=== PATIENT | female | born 1970 | race Caucasian/White ===

== ENCOUNTER 2019-08-23 19:00 | Emergency (ER) | payer OTHER ==
[~2019-08-23] VITALS: Ht 170.2 cm; Wt 88.9 kg
--- NOTE | 2019-08-23 19:00 | NUR ---
PT BIBA BLS. TAKEN TO BED 9
[2019-08-23 19:01] VITALS: BP 168/92
--- NOTE | 2019-08-23 19:30 | NUR ---
Dr. Sterling examining patient.
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
[2019-08-23] MEDS ORDERED: KETOROLAC 30 MG/ML VIAL IM ONE (19:35)
[2019-08-23] MEDS ORDERED: FLUORESCEIN OPTH STRIP 1 MG OP ONE (19:35)
[2019-08-23] MEDS ORDERED: DIAZEPAM 5 MG TAB PO ONE (19:35)
[2019-08-23] MEDS ORDERED: TETRACAINE HCL/PF 0.5% OPTH 4 ML BTL OP ONE (19:35)
--- NOTE | 2019-08-23 20:22 | NUR ---
PT RETURN FROM RADIOLOGY
--- NOTE | 2019-08-23 20:30 | NUR ---
PATIENT IS ALERT AND ORIENTED, IS AWARE TO REPORT ANY FEELING OF NUMBNESS. DAUGHTER IS AT BEDSIDE AND AWARE NOT TO MOVE PATIENT
--- NOTE | 2019-08-23 20:49 | NUR ---
PT ASSISTED ON BEDPAN.
[2019-08-23] MEDS ORDERED: TETRACAINE HCL/PF 0.5% OPTH 4 ML BTL ONE (21:38)
--- NOTE | 2019-08-23 21:39 | NUR ---
DR NORTON AT BEDSIDE EXAMINING PATIENT EYE
[2019-08-23 22:05] VITALS: BP 130/92
--- NOTE | 2019-08-23 22:05 | NUR ---
Patient discharged with v/s stable. Written and verbal after care instructions given and explained. Patient alert, oriented and verbalized understanding of instructions. Ambulatory with steady gait. All questions addressed prior to discharge. ID band removed. Patient advised to follow up with PMD. Rx of NAPROSYN, TOBRAMYCIN, VALIUM WAS given. Patient educated on indication of medication including possible reaction and side effects. Opportunity to ask questions provided and answered. PT STATED SHE HAD SOME PAIN 5/10 AND WAS REQUESTING MORE PAIN MEDICATION PRIOR TO D/C. ERMD MADE AWARE.
[2019-08-23] MEDS ORDERED: HYDROcodone/APAP 5/325 MG 1 TAB TAB PO ONE (22:10)
--- NOTE | 2019-08-23 22:20 | NUR ---
PATIENT LEFT BEFORE ADMINISTRATION OF HYDROCODONE PRESCRIBED.
== END 2019-08-23 22:05 | disposition home or self-care (01) ==
LOC: MED 19:00
DX: S16.1XXA Strain of muscle, fascia and tendon at neck level, initial encounter (principal); S39.012A Strain of muscle, fascia and tendon of lower back, initial encounter; S00.212A Abrasion of left eyelid and periocular area, initial encounter; V49.60XA Unspecified car occupant injured in collision with unspecified motor vehicles in traffic accident, initial encounter; Y93.89 Activity, other specified; Y92.89 Other specified places as the place of occurrence of the external cause; Y99.8 Other external cause status
CPT/HCPCS: 72040; 72110; 96372; 99284; J1885

== ENCOUNTER 2019-08-25 17:12 | Emergency (ER) | payer OTHER ==
[~2019-08-25] VITALS: Ht 170.2 cm; Wt 88.0 kg
--- NOTE | 2019-08-25 17:22 | NUR ---
PATIENT AMBUALTED STEADY GAIT TO BED 5.
[2019-08-25 17:23] VITALS: BP 142/88
[2019-08-25] MEDS ORDERED: ACETAMINOPHEN EXTRA STRENGTH 500 MG TAB PO ONE (17:35)
--- NOTE | 2019-08-25 17:44 | NUR ---
PT WENT TO CT WITH THE TECH.
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
--- NOTE | 2019-08-25 18:11 | NUR ---
PT MEDICATED WITH TYELONOL EXTRA STRENGTH. PT STABLE. CT DONE. WAITING FOR THE RESULT.
--- NOTE | 2019-08-25 18:36 | NUR ---
DR QUIROGA AT THE BEDSIDE. TALKING TO THE PT.
--- NOTE | 2019-08-25 18:45 | NUR ---
PT REPORTS PAIN 5/10 AT THIS TIME.
[2019-08-25 18:46] VITALS: BP 142/88
--- NOTE | 2019-08-25 18:46 | NUR ---
Patient discharged with v/s stable. Written and verbal after care instructions given and explained. Patient alert, oriented and verbalized understanding of instructions. Ambulatory with steady gait. All questions addressed prior to discharge. ID band removed. Patient advised to follow up with PMD. Rx of TYLENOL, NORCO given. Patient educated on indication of medication including possible reaction and side effects. Opportunity to ask questions provided and answered.
== END 2019-08-25 18:46 | disposition home or self-care (01) ==
LOC: MED 17:12
DX: S39.012A Strain of muscle, fascia and tendon of lower back, initial encounter (principal); M51.36 Other intervertebral disc degeneration, lumbar region; V89.2XXA Person injured in unspecified motor-vehicle accident, traffic, initial encounter; Y93.89 Activity, other specified; Y92.89 Other specified places as the place of occurrence of the external cause; Y99.8 Other external cause status
CPT/HCPCS: 72131; 99283